=== PATIENT | female | born 1965 | race American Indian/Alaskan Native ===

== ENCOUNTER 2018-06-20 15:00 | Emergency (ER) | payer BC ==
--- NOTE | 2018-06-20 15:41 | Emergency Department Report ---
ED Rash HPI - HPI Chief Complaint: Skin Rash Stated Complaint: MEASELS Time Seen by Provider: 06/20/18 15:40 Duration: 5 Days Location: Other (gen) Suspected Cause: Unknown Rash Symptoms: Yes Itching, No Facial Swelling, No Tongue/Oral Swelling, No Breathing Difficulties, No Choking Sensation, No Wheezing/Dyspnea, No Peeling, No Blistering, No Fever, No Lightheaded, No Malaise, No Myalgias Severity: mild Other History: 53 yo aa female with several day history of rash. itching. no known exposure. works in [employer]. [facility] intact ED Review of Systems ROS: Stated complaint: MEASELS Other details as noted in HPI Comment: All other systems reviewed and negative Constitutional: denies: see HPI Eyes: denies: as per HPI ENT: denies: ear pain Respiratory: denies: cough Cardiovascular: denies: dyspnea on exertion Endocrine: denies: excessive sweating Gastrointestinal: denies: abdominal pain Genitourinary: denies: urgency Musculoskeletal: denies: as per HPI Skin: as per HPI, rash Neurological: denies: headache Psychiatric: denies: anxiety Hematological/Lymphatic: denies: easy bleeding ED Past Medical Hx - Past Medical History Previous Medical History?: Yes Hx Hypertension: Yes - Surgical History Past Surgical History?: Yes Additional Surgical History: partial hysterectomy - Social History Smoking Status: Never Smoker Substance Use Type: None - Medications Home Medications: Home Medications Medication Instructions Recorded Confirmed Last Taken Type Olmesartan/Hydrochlorothiazide 1 tab PO QDAY #30 tablet 06/20/18 Unknown Rx [Benicar HCT 20-12.5 mg] Permethrin [Elimite] 60 gm TP ONCE #1 cream..g. 06/20/18 Unknown Rx predniSONE [Deltasone] 20 mg PO DAILY #5 tablet 06/20/18 Unknown Rx Rash Exam - Exam General: Vital signs noted. No distress. Alert and acting appropriately. HEENT: No Periorbital Edema, No Conjuctival Injection, No Chemosis, No Perioral Edema, No Tongue Edema, No Uvular Edema, No Compromised Airway, No Drooling Lungs: Yes Good Air Exchange, No Wheezes, No Ronchi, No Stridor, No Cough, No Labored Respirations, No Retractions, No Use of Accessory Muscles, No Other Abnormal Lung Sounds Heart: Yes Regular, No Murmur Skin: Yes Maculopapular Rash, Yes Erythema, No Urticarial Rash, No Morbilliform rash, No Bulla(e), No Excoriations, No Weeping, No Tenderness, No Edema, No Encrustations Other: Positive: Abdomen Normal, Neurologic Normal, Musculoskeletal Normal ED Course Vital Signs 06/20/18 15:35 Temperature 98.4 F Pulse Rate 91 H Respiratory 20 Rate Blood Pressure 208/114 O2 Sat by Pulse 98 Oximetry ED Medical Decision Making - Medical Decision Making works in [facility] [employer] [facility] rash lesions of various age no open lesions or pustules generalized rash no one in home with the rash [facility] intact no oral or eye lesions non toxic no fever taking po medicated and dc home w dc poc - Differential Diagnosis ro infectious v allergic rash Critical care attestation.: If time is entered above; I have spent that time in minutes in the direct care of this critically ill patient, excluding procedure time. ED Disposition Clinical Impression: Rash, Hypertension, Medication refill Disposition: DC-01 TO HOME OR SELFCARE Is pt being admited?: No Does the pt Need Aspirin: No Condition: Stable Instructions: Acute Rash (ED), Hypertension (ED) Additional Instructions: take bp med daily meds as ordered today clean home follow up pcp follow up derm referrals given below over the counter benadryl and pepcid will help with itching cool showers Prescriptions: Olmesartan/Hydrochlorothiazide [Benicar HCT 20-12.5 mg] 1 tab PO QDAY #30 tablet Permethrin [Elimite] 60 gm TP ONCE #1 cream..g. predniSONE [Deltasone] 20 mg PO DAILY #5 tablet Referrals: ANNEL LAM MD [Referring] - 3-5 Days LAWRENCE EVERETT MD [Staff Physician] - 3-5 Days Time of Disposition: 15:40
[2018-06-20] MEDS ORDERED: DELTASONE PO ONE (15:45)
[2018-06-20] MEDS ORDERED: CATAPRES PO ONE (15:45)
[2018-06-20] MEDS ORDERED: PEPCID PO ONE (15:46)
[2018-06-20] MEDS ORDERED: VISTARIL PO ONE (15:46)
[2018-06-20 16:19] VITALS: BP 210/121
== END 2018-06-20 16:33 | disposition home or self-care (01) ==
LOC: ED 15:00
DX: R21 Rash and other nonspecific skin eruption (principal); L29.9 Pruritus, unspecified; I10 Essential (primary) hypertension; Z90.710 Acquired absence of both cervix and uterus
CPT/HCPCS: 99282; J7512; Q0177

== ENCOUNTER 2018-08-07 12:43 | Emergency (ER) | payer BC ==
--- NOTE | 2018-08-07 13:03 | Emergency Department Report ---
Blank Doc - Documentation Documentation: This is a 53-year-old female that presents with HTN. Stated was sent by PCP for HTN. Denies any symptoms. Denies any headache. Stated is taking Benicar for HTN. This initial assessment diagnostic orders/clinical plan/treatment(s) is/are subject to change based on patient's health status, clinical progression and re- assessment by fellow clinical providers in the ED. Further treatment and workup at subsequent clinical providers discretion. Patient/guardians urged not to elope from ED s their condition may be serious if not clinically assessed and managed. Initial orders include: 1-Patient sent to [facility] for further evaluation and treatment
[2018-08-07] MEDS ORDERED: CATAPRES PO ONE (13:05)
[2018-08-07 13:45] LABS: Eosinophils # (Auto) 0.1 K/mm3 (0.0-0.4); Eosinophils % (Auto) 3.1 % (0.0-4.3); Hematocrit 38.1 % (30.3-42.9); Hemoglobin 12.7 gm/dl (10.1-14.3); Lymphocytes # (Auto) 2.1 K/mm3 (1.2-5.4); Lymphocytes % (Auto) 45.4 % (13.4-35.0); Mean Corpuscular HGB Conc 33 % (30-34); Mean Corpuscular Volume 91 fl (79-97); Monocytes # (Auto) 0.4 K/mm3 (0.0-0.8); Monocytes % (Auto) 8.6 % (0.0-7.3); Platelet Count 274 K/mm3 (140-440); Red Cell Distribution Width 13.6 % (13.2-15.2)
[2018-08-07 14:10] LABS: Alanine Aminotransferase 14 units/L (7-56); Albumin 3.9 g/dL (3.9-5); BUN/Creatinine Ratio 17; Blood Urea Nitrogen 12 mg/dL (7-17); Calcium 10.6 mg/dL (8.4-10.2); Hemolysis Index 31
[2018-08-07] MEDS ORDERED: NON-FORMULARY (Olmesartan/Hydrochlorothiazide [Benicar Hct 20-12.5 Mg] 1 TAB) PO STA (15:04)
[2018-08-07 15:05] VITALS: BP 205/105
--- NOTE | 2018-08-07 15:05 | Emergency Department Report ---
ED General Adult HPI - General Chief complaint: High BP Stated complaint: HTN Time Seen by Provider: 08/07/18 12:59 Source: patient, RN notes reviewed, old records reviewed Mode of arrival: Ambulatory Limitations: No Limitations - History of Present Illness Initial comments: This is a 53-year-old female who is not known to this provider previously, who is sent to the emergency room by her primary care doctor for evaluation of hypertension which is not symptomatic. Patient was on an outpatient medication, Benicar, and ran out of her prescription approximately one week ago. She denies headache, neck pain, chest pain, abdominal pain, shortness of breath, extremity swelling, change in urination. She has no physical complaints at this time. She is resting comfortably in a stretcher, and in no acute distress. She reports that she is able to afford her prescriptions without difficulty. -: unknown Severity scale (0 -10): 0 Improves with: none Worsens with: none Associated Symptoms: denies other symptoms - Related Data Previous Rx's Medication Instructions Recorded Last Taken Type Permethrin [Elimite] 60 gm TP ONCE #1 cream..g. 06/20/18 Unknown Rx predniSONE [Deltasone] 20 mg PO DAILY #5 tablet 06/20/18 Unknown Rx Olmesartan/Hydrochlorothiazide 1 tab PO QDAY #30 tablet 08/07/18 Unknown Rx [Benicar HCT 20-12.5 mg] Allergies Allergy/AdvReac Type Severity Reaction Status Date / Time No Known Allergies Allergy Unverified 06/20/18 15:38 ED Review of Systems ROS: Stated complaint: HTN Other details as noted in HPI Constitutional: denies: fever Eyes: denies: eye discharge ENT: denies: epistaxis Respiratory: denies: cough Cardiovascular: denies: chest pain Gastrointestinal: denies: abdominal pain Genitourinary: denies: dysuria, frequency, hematuria Musculoskeletal: denies: back pain, arthralgia, myalgia Skin: denies: lesions Neurological: denies: weakness Psychiatric: denies: anxiety ED Past Medical Hx - Past Medical History Hx Hypertension: Yes Additional medical history: hypothyroidism - Surgical History Additional Surgical History: partial hysterectomy,tubiligation - Social History Smoking Status: Never Smoker Substance Use Type: None - Medications Home Medications: Home Medications Medication Instructions Recorded Confirmed Last Taken Type Permethrin [Elimite] 60 gm TP ONCE #1 cream..g. 06/20/18 Unknown Rx predniSONE [Deltasone] 20 mg PO DAILY #5 tablet 06/20/18 Unknown Rx Olmesartan/Hydrochlorothiazide 1 tab PO QDAY #30 tablet 08/07/18 Unknown Rx [Benicar HCT 20-12.5 mg] ED Physical Exam - General Limitations: No Limitations General appearance: alert, in no apparent distress - Head Head exam: Present: atraumatic, normocephalic - Eye Eye exam: Present: normal appearance, EOMI. Absent: nystagmus - ENT ENT exam: Present: normal exam, normal orophraynx, mucous membranes moist, normal external ear exam - Neck Neck exam: Present: normal inspection, full ROM. Absent: tenderness, meningismus - Respiratory Respiratory exam: Present: normal lung sounds bilaterally. Absent: respiratory distress, wheezes, rales, rhonchi, stridor, chest wall tenderness, accessory muscle use - Cardiovascular Cardiovascular Exam: Present: regular rate, normal rhythm, normal heart sounds. Absent: bradycardia, tachycardia, irregular rhythm, systolic murmur, diastolic murmur, rubs, gallop - GI/Abdominal GI/Abdominal exam: Present: soft. Absent: distended, tenderness, guarding, rebound, rigid, pulsatile mass - Extremities Exam Extremities exam: Present: normal inspection, full ROM, other (2+ pulses noted in the bilateral upper, lower extremities. Compartments soft. No long bony tenderness. The pelvis is stable.). Absent: pedal edema, joint swelling, calf tenderness - Back Exam Back exam: Present: normal inspection, full ROM. Absent: tenderness, CVA tenderness (R), paraspinal tenderness, vertebral tenderness - Neurological Exam Neurological exam: Present: alert, oriented X3, CN II-XII intact, normal gait, other (Extraocular movements intact. Tongue midline. No facial droop. Facial sensation intact to light touch in the V1, V2, V3 distribution bilaterally. 5 and 5 strength in 4 extremities.. Sensation is intact to light touch in 4 extremities.). Absent: motor sensory deficit - Psychiatric Psychiatric exam: Present: normal affect, normal mood - Skin Skin exam: Present: warm, dry, intact, normal color. Absent: rash ED Course Vital Signs 08/07/18 08/07/18 13:01 15:04 Temperature 98 F 98.3 F Pulse Rate 79 69 Respiratory 18 18 Rate Blood Pressure 192/110 Blood Pressure 205/105 [Right] O2 Sat by Pulse 100 97 Oximetry ED Medical Decision Making - Lab Data Result diagrams: 08/07/18 13:18 08/07/18 13:18 Vital Signs 08/07/18 08/07/18 13:01 15:04 Temperature 98 F 98.3 F Pulse Rate 79 69 Respiratory 18 18 Rate Blood Pressure 192/110 Blood Pressure 205/105 [Right] O2 Sat by Pulse 100 97 Oximetry Lab Results 08/07/18 08/07/18 Range/Units 13:18 13:18 WBC 4.7 (4.5-11.0) K/mm3 RBC 4.20 (3.65-5.03) M/mm3 Hgb 12.7 (10.1-14.3) gm/dl Hct 38.1 (30.3-42.9) % MCV 91 (79-97) fl MCH 30 (28-32) pg MCHC 33 (30-34) % RDW 13.6 (13.2-15.2) % Plt Count 274 (140-440) K/mm3 Lymph % (Auto) 45.4 H (13.4-35.0) % [place] % (Auto) 8.6 H (0.0-7.3) % Eos % (Auto) 3.1 (0.0-4.3) % Baso % (Auto) 1.0 (0.0-1.8) % Lymph # 2.1 (1.2-5.4) K/mm3 [place] # 0.4 (0.0-0.8) K/mm3 Eos # 0.1 (0.0-0.4) K/mm3 Baso # 0.0 (0.0-0.1) K/mm3 Seg Neutrophils % 41.9 (40.0-70.0) % Seg Neutrophils # 2.0 (1.8-7.7) K/mm3 Sodium 140 (137-145) mmol/L Potassium 4.1 (3.6-5.0) mmol/L Chloride 101.0 (98-107) mmol/L Carbon Dioxide 26 (22-30) mmol/L Anion Gap 17 mmol/L BUN 12 (7-17) mg/dL Creatinine 0.7 (0.7-1.2) mg/dL Estimated GFR > 60 ml/min BUN/Creatinine Ratio 17 % Glucose 95 (65-100) mg/dL Calcium 10.6 H (8.4-10.2) mg/dL Total Bilirubin 0.30 (0.1-1.2) mg/dL AST 31 (5-40) units/L ALT 14 (7-56) units/L Alkaline Phosphatase 55 (35-129) units/L Total Protein 7.5 (6.3-8.2) g/dL Albumin 3.9 (3.9-5) g/dL Albumin/Globulin Ratio 1.1 % - Medical Decision Making Differential diagnosis, including not limited to: Chronic hypertension, medication refill Assessment and plan: 53-year-old female with hypertension which is poorly managed, but not acutely decompensated. The patient is afebrile, with reassuring vital signs with the exception of hypertension. Clonidine was ordered prior to my personal evaluation of the patient. Upon my evaluation, the patient is chatting on the cellular phone, in no acute distress, and has no historical features or physical exam evidence to suggest end organ injury, or end organ dysfunction. Her hypertension is most likely a chronic issue, and appears to be poorly manag ed. The patient's prescription was refilled. Please reference the [employer] clinical policy on hypertension which is not acutely decompensated and is a symptomatic. The patient was encouraged to pursue diet and left cell modifications to improve her blood pressure, and she was given a prescription refill on her antihypertensive medication. She will be discharged at this point in time. Critical care attestation.: If time is entered above; I have spent that time in minutes in the direct care of this critically ill patient, excluding procedure time. ED Disposition Clinical Impression: Hypertension, Medication refill Disposition: DC-01 TO HOME OR SELFCARE Is pt being admited?: No Does the pt Need Aspirin: No Condition: Stable Instructions: Hypertension (ED) Additional Instructions: Avoid consumption of caffeinated beverages, and caffeinated substances. Participate in physical activity as tolerated, and avoid consumption of extra s alt Make certain to get 7-8 hours of good quality sleep per day. Follow-up with the primary care doctor within the next 4-6 weeks. Take a blood pressure medication as directed. Please return to the emergency room right away with movement, worsened or different symptoms. Patient should follow-up with her primary care doctor for elevated blood pressure as long-term complications of hypertension and elevated blood pressure could include stroke, heart attack, blindness, disability, loss of quality of life. Prescriptions: Olmesartan/Hydrochlorothiazide [Benicar HCT 20-12.5 mg] 1 tab PO QDAY #30 tablet Referrals: [facility] [Provider Group] - as needed
[2018-08-07] MEDS ORDERED: HCTZ PO STA (15:11)
[2018-08-07] MEDS ORDERED: COZAAR PO STA (15:11)
== END 2018-08-07 15:25 | disposition home or self-care (01) ==
LOC: ED 12:43
DX: I10 Essential (primary) hypertension (principal); Z76.0 Encounter for issue of repeat prescription; E03.9 Hypothyroidism, unspecified
CPT/HCPCS: 36415; 80053; 85025